=== PATIENT | female | born 1965 | race Caucasian/White ===

== ENCOUNTER 2016-07-02 11:30 | Inpatient (IN) | payer BC ==
[2016-07-02] MEDS ORDERED: PHENERGAN INJ 25 MG IVP PRN (12:18)
[2016-07-02] MEDS ORDERED: ZOFRAN INJ 4 MG VIAL IVP PRN (12:18)
[2016-07-02] MEDS ORDERED: PEPCID 20 MG IV PREMIX* 20 MG/50 ML BAG IV PRN (12:18)
[2016-07-02] MEDS ORDERED: PATIENT'S HOME MEDICATION RESPIRATORY (Alprazolam [Xanax 1 Mg] 1 MG) PO PRN (15:08)
[2016-07-02] MEDS ORDERED: ATARAX TAB 25 MG PO PRN (15:08)
--- NOTE | 2016-07-02 15:15 | DR.H&P ---
H&P - History & Physical for Day of: H&P Date: 07/02/16 - Chief Complaint Chief Complaint: Tom pain, worse after meals, nausea vomiting, diarrhea - Allergies Allergies/Adverse Reactions: Allergies Allergy/AdvReac Type Severity Reaction Status Date / Time No Known Drug Allergy Allergy Verified 04/16/14 17:13 - History of Present Illness History of Present Illness: patient is a 51-year-old white female who was a direct admit from Dr. Palencia's office after failing to improve with outpatient therapy. Patient has been complaining of upper right quadrant pain as well as some right lower quadrant pain. Pain has worsened over last several days with nausea and vomiting and an loose stool. Patient had a gallbladder ultrasound outpatient this a.m. report on chart. Patient was negative for gallstones. 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 Patient had an EGD and a colonoscopy within the last 3 months. Patient does suffer from GERD and is currently on PPI therapy . We plan to admit for CT of abdomen and pelvis to rule out infectious process. We'll plan for a HIDA scan of her gallbladder on Tuesday. 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 - Family History Family Medical History: Diabetes Mellitus, [place], Hypertension - Social History Does patient currently use any type of tobacco product: No Have you used tobacco products in the last 12 months: No Type of Tobacco Use: None Does any household member use tobacco: No Alcohol Use: None - Review of Systems Constitutional: Chills, Weakness Eyes: No Symptoms Reported ENT: No Symptoms Reported Cardiovascular: No Symptoms Reported Gastrointestinal: Nausea, Vomiting, Abdominal Pain, Diarrhea Genitourinary: Frequency Musculoskeletal: Back Pain, Leg Pain Skin: No Symptoms Reported Neurological: Numbness (chronic to lower extremities) - Physical Exam Vital Signs: Blood Pressure [Left Arm] 125/75 Blood Pressure [Right Arm] 135/68 Blood Pressure 125/75 Oriented: Normal Eyes: Normal Ear: Normal Nose: Normal Throat: Normal Respiratory: Clear Throughout Cardiovascular: Normal : Normal Auscultation: Bowel Sounds: Normal Palpation: Normal Tenderness: RUQ, RLQ, Epigastric Skin: Normal Musculoskeletal: Back:Lumbar, Motor Deficit (chronic lower extremity weakness, limited mobility) Psychiatric: Depression Speech Pattern: Clear - Assessment/Plan (1) RUQ abdominal pain Status: Acute Plan: ADMIT, CT ABD PELVIS. CBC CMP AMYLASE, LIPASE. UA/UC. HIDA SCAN ON TUESDAY, GB US ON CHART (2) Nausea & vomiting Qualifiers: Vomiting type: unspecified Vomiting Intractability: V Status: Acute Plan: PAIN AND NAUSEA CONTROL (3) Anxiety Status: Chronic Plan: CONTINUE HOME MEDS (4) Arthritis Status: Chronic Plan: MONITOR, RESUME HOME MEDS (5) Depression Qualifiers: Depression Type: D Major depression recurrence: M Active/Remission status : A Major depression episode severity: M Psychotic features: P Trimester: T Status: Chronic (6) GERD (gastroesophageal reflux disease) Qualifiers: Esophagitis presence: E Status: Chronic Plan: PROTONIX, GI COCKTAIL (7) Lower extremity neuropathy Qualifiers: Laterality: bilateral Qualified Code(s): G57.91 - Unspecified mononeuropathy of right lower limb Status: Chronic Plan: CONTINUE HOME MEDS, MONITOR. FALL RISK
[2016-07-02] MEDS: NS 1000 ML 1,000 ML IV SCH (16:28)
[2016-07-02] MEDS: NEURONTIN CAP 400 MG PO SCH ×3 (16:29→20:55)
[2016-07-02] MEDS ORDERED: [UNRECOGNIZED DRUG - OTHER] PO SCH (17:00)
[2016-07-02] MEDS: COZAAR PO SCH (20:55)
[2016-07-02] MEDS: FLEXERIL TAB 10 MG PO SCH (20:55)
[2016-07-02] MEDS: CIPRO IV 400 MG PREMIX* 400 MG/200 ML IV.SOLN. IV SCH (20:55)
[2016-07-02] MEDS: LEVSIN/MAALOX/LIDOC VISC PO PRN (20:58)
[2016-07-02] MEDS: AMBIEN PO PRN (20:58)
[2016-07-02] MEDS: PERCOCET TAB 5/325 MG PO PRN (21:03)
[2016-07-03 01:36] LABS: BILIRUBIN,URINE NEGATIVE (NEGATIVE); BLOOD/HEMOGLOBIN,URINE NEGATIVE (NEGATIVE); GLUCOSE, URINE NEGATIVE (NEGATIVE); KETONES,URINE NEGATIVE (NEGATIVE); LEUKOCYTE ESTERASE ,URINE NEGATIVE (NEGATIVE); NITRITES,URINE NEGATIVE (NEGATIVE); PH,URINE 6.5 (5.0 - 8.0); PROTEIN,URINE NEGATIVE (NEGATIVE); UROBILINOGEN,URINE NORMAL (NORMAL)
[2016-07-03 01:42] LABS: APPEARANCE,URINE CLEAR (CLEAR); BACTERIA,URINE NEGATIVE /HPF (NEGATIVE); COLOR,URINE YELLOW (YELLOW); RBC,URINE 0-3 /HPF (NEGATIVE); SQUAMOUS EPITHELIAL CELL,UR RARE /HPF (NEGATIVE)
[2016-07-03] MEDS: PERCOCET TAB 5/325 MG PO PRN ×3 (02:53→17:24)
[2016-07-03] MEDS: NS 1000 ML 1,000 ML IV SCH ×3 (04:50→20:31)
[2016-07-03 07:35] LABS: BASOPHILS # (AUTO) 0.1 X10^3/uL (0.0-0.1); BASOPHILS % (AUTO) 0.7 % (0.2-1.0); EOSINOPHILS % (AUTO) 0.5 % (0.9-2.9); HEMATOCRIT 35.7 % (36.0-47.0); HEMOGLOBIN 11.3 g/dL (12.0-16.0); LYMPHOCYTES # (AUTO) 2.6 X10^3/uL (1.3-2.9); LYMPHOCYTES % (AUTO) 34.5 % (21.0-51.0); MEAN CORPUSCULAR HEMOGLOBIN 24.3 pg (27.0-34.0); MEAN CORPUSCULAR HGB CONC 31.6 g/dL (33.0-35.0); MEAN PLATELET VOLUME 7.5 fL (7.4-11.0); MONOCYTES # (AUTO) 0.6 x10^3/uL (0.3-0.8); MONOCYTES % (AUTO) 7.6 % (0.0-13.0); NEUTROPHILS # (AUTO) 4.2 x10^3/uL (2.2-4.8); NEUTROPHILS % (AUTO) 56.7 % (42.0-75.0); PLATELET COUNT 187 X10^3/uL (150.0-450.0); RED BLOOD COUNT 4.63 X10^6/uL (3.5-5.4); RED CELL DISTRIBUTION WIDTH 15.6 % (11.6-16.5); WHITE BLOOD COUNT 7.5 X10^3/uL (3.6-10.0)
[2016-07-03 07:53] LABS: ALANINE AMINOTRANSFERASE 26 Units/L (12-78); ALBUMIN 3.2 g/dL (3.4-5.0); ALKALINE PHOSPHATASE 87 Units/L (46-116); ASPARTATE AMINO TRANSFERASE 12 Units/L (15-37); BLOOD UREA NITROGEN 12 mg/dL (7-18); CALCIUM 8.1 mg/dL (8.5-10.1); CARBON DIOXIDE 33.4 mmol/L (21-32); CHLORIDE 104 mmol/L (98-107); COR CA(FOR HYPOALB) 8.7 mg/dL (8.5-10.1); COR NA(FOR HYPERGLY) 143 mmol/L (136-145); GLUCOSE 121 mg/dL (65-99); SODIUM 142 mmol/L (136-145); TOTAL PROTEIN 6.4 g/dL (6.4-8.2); eGFR BLACK RACES > 60 (>60); eGFR NON BLACK RACES > 60 (>60)
[2016-07-03] MEDS ORDERED: [UNRECOGNIZED DRUG - OTHER] PO SCH (09:00)
[2016-07-03] MEDS: CIPRO IV 400 MG PREMIX* 400 MG/200 ML IV.SOLN. IV SCH ×2 (09:00→20:30)
[2016-07-03 09:01] LABS: MICROCYTOSIS SLIGHT; PLATELET MORPHOLOGY COMMENT NORMAL (NORMAL); STOMATOCYTES PRESENT
[2016-07-03] MEDS ORDERED: BENADRYL INJ 50 MG VIAL IVP ONE (10:15)
[2016-07-03] MEDS: FLEXERIL TAB 10 MG PO SCH ×2 (10:37→20:30)
[2016-07-03] MEDS: NEURONTIN CAP 400 MG PO SCH ×4 (10:37→20:30)
[2016-07-03] MEDS: CELEXA PO SCH (10:37)
[2016-07-03] MEDS ORDERED: NS 100 ML IV 100 ML IV ONE (10:40)
[2016-07-03 11:08] VITALS: BMI 38.3
[2016-07-03] MEDS: XANAX PO PRN (11:09)
--- NOTE | 2016-07-03 15:26 | CT ---
CT OF THE ABDOMEN WITHOUT AND WITH CONTRAST HISTORY: Abdominal pain. History of diverticulitis. Comparison: 04/07/2015 Technique: Multiple axial images of the abdomen were obtained both before and following the administration of I V contrast. Dose reduction techniques including Automated Exposure Control (AEC) and adjustment of mA and kV were utlized. Findings: Abdomen without contrast: No calcified gallstones. No calcified renal stones or proximal ureteral st ones. Abdomen with contrast: The heart is normal in size. There is no pericardial effusion. Lung bases ar e clear without focal consolidation, pleural effusion or pneumothorax. Liver and spleen are normal in size, enhancement characteristics and contour. No focal lesions. The portal vein is patent. No ductal dilitation. Gallbladder is present. No gallbladder wall thickening. The pancreas is unremarkable. Adrenal glands are normal. Kidneys enhance symmetrically without hydr onephrosis. No bowel obstruction or inflammation of the visualized bowel. Normal appendix. No abnormal appearing mesenteric or retroperitoneal lymph nodes. No free fluid or fluid collections. No aggressive osseous lesions. IMPRESSION: 1. No source of patient's abdominal pain is identified. It should be noted that a CT of the abdomen (which was ordered and performed) does not cover a significant portion of the rectosigmoid colon wh ich is a very common site of diverticulitis. 2. It should be noted that dual phase CT (with and without contrast) is neither recommended nor requ ired in most situations and should be reserved for patients with known solid organ lesions, hematuri a and few other specific indications. https://acsearch.acr.org/list Reported By:
[2016-07-03] MEDS: PROTONIX INJ 40 MG VIAL IVP SCH (17:24)
[2016-07-03] MEDS: AMBIEN PO PRN (20:30)
[2016-07-03] MEDS: COZAAR PO SCH (20:30)
[2016-07-04 06:23] LABS: BASOPHILS % (AUTO) 0.6 % (0.2-1.0); EOSINOPHILS # (AUTO) 0.1 x10^3/uL (0.0-0.2); EOSINOPHILS % (AUTO) 0.7 % (0.9-2.9); HEMATOCRIT 34.6 % (36.0-47.0); HEMOGLOBIN 10.9 g/dL (12.0-16.0); LYMPHOCYTES # (AUTO) 2.7 X10^3/uL (1.3-2.9); LYMPHOCYTES % (AUTO) 34.7 % (21.0-51.0); MEAN CORPUSCULAR HEMOGLOBIN 24.3 pg (27.0-34.0); MEAN CORPUSCULAR HGB CONC 31.4 g/dL (33.0-35.0); MEAN CORPUSCULAR VOLUME 77.4 fL (80.0-100.0); MEAN PLATELET VOLUME 7.6 fL (7.4-11.0); MONOCYTES # (AUTO) 0.7 x10^3/uL (0.3-0.8); MONOCYTES % (AUTO) 8.9 % (0.0-13.0); NEUTROPHILS # (AUTO) 4.2 x10^3/uL (2.2-4.8); NEUTROPHILS % (AUTO) 55.1 % (42.0-75.0); PLATELET COUNT 187 X10^3/uL (150.0-450.0); RED BLOOD COUNT 4.48 X10^6/uL (3.5-5.4); RED CELL DISTRIBUTION WIDTH 15.6 % (11.6-16.5); WHITE BLOOD COUNT 7.7 X10^3/uL (3.6-10.0)
[2016-07-04 06:51] LABS: ALANINE AMINOTRANSFERASE 29 Units/L (12-78); ALBUMIN 3.2 g/dL (3.4-5.0); ALKALINE PHOSPHATASE 84 Units/L (46-116); ASPARTATE AMINO TRANSFERASE 17 Units/L (15-37); BLOOD UREA NITROGEN 7 mg/dL (7-18); CALCIUM 8.2 mg/dL (8.5-10.1); CARBON DIOXIDE 31.4 mmol/L (21-32); CHLORIDE 107 mmol/L (98-107); COR CA(FOR HYPOALB) 8.8 mg/dL (8.5-10.1); CREATININE 0.84 mg/dL (0.55-1.02); GLUCOSE 101 mg/dL (65-99); SODIUM 144 mmol/L (136-145); TOTAL PROTEIN 6.3 g/dL (6.4-8.2); eGFR BLACK RACES > 60 (>60); eGFR NON BLACK RACES > 60 (>60)
[2016-07-04 07:26] LABS: HYPOCHROMASIA SLIGHT; PLATELET MORPHOLOGY COMMENT NORMAL (NORMAL)
[2016-07-04] MEDS: XANAX PO PRN ×2 (08:56→20:31)
[2016-07-04] MEDS: FLEXERIL TAB 10 MG PO SCH ×2 (08:56→20:31)
[2016-07-04] MEDS: NEURONTIN CAP 400 MG PO SCH ×4 (08:56→20:30)
[2016-07-04] MEDS: PROTONIX INJ 40 MG VIAL IVP SCH (08:56)
[2016-07-04] MEDS: CIPRO IV 400 MG PREMIX* 400 MG/200 ML IV.SOLN. IV SCH ×2 (08:57→20:28)
[2016-07-04] MEDS: CELEXA PO SCH (08:57)
[2016-07-04] MEDS: PERCOCET TAB 5/325 MG PO PRN ×4 (09:00→23:50)
[2016-07-04] MEDS: LEVSIN/MAALOX/LIDOC VISC PO PRN ×2 (09:04→23:51)
[2016-07-04] MEDS: NS 1000 ML 1,000 ML IV SCH ×2 (13:16→18:10)
[2016-07-04] MEDS: AMBIEN PO PRN (20:31)
[2016-07-04] MEDS: COZAAR PO SCH (20:31)
[2016-07-05] MEDS: NS 1000 ML 1,000 ML IV SCH ×4 (01:55→21:17)
[2016-07-05 05:25] LABS: BASOPHILS % (AUTO) 0.6 % (0.2-1.0); EOSINOPHILS # (AUTO) 0.1 x10^3/uL (0.0-0.2); EOSINOPHILS % (AUTO) 0.9 % (0.9-2.9); HEMATOCRIT 35.3 % (36.0-47.0); HEMOGLOBIN 11.2 g/dL (12.0-16.0); LYMPHOCYTES # (AUTO) 2.9 X10^3/uL (1.3-2.9); LYMPHOCYTES % (AUTO) 37.1 % (21.0-51.0); MEAN CORPUSCULAR HEMOGLOBIN 24.4 pg (27.0-34.0); MEAN CORPUSCULAR HGB CONC 31.7 g/dL (33.0-35.0); MEAN CORPUSCULAR VOLUME 76.9 fL (80.0-100.0); MEAN PLATELET VOLUME 7.6 fL (7.4-11.0); MONOCYTES # (AUTO) 0.5 x10^3/uL (0.3-0.8); MONOCYTES % (AUTO) 6.9 % (0.0-13.0); NEUTROPHILS # (AUTO) 4.3 x10^3/uL (2.2-4.8); NEUTROPHILS % (AUTO) 54.5 % (42.0-75.0); PLATELET COUNT 190 X10^3/uL (150.0-450.0); RED BLOOD COUNT 4.59 X10^6/uL (3.5-5.4); RED CELL DISTRIBUTION WIDTH 15.7 % (11.6-16.5); WHITE BLOOD COUNT 7.9 X10^3/uL (3.6-10.0)
[2016-07-05 05:37] LABS: ALANINE AMINOTRANSFERASE 26 Units/L (12-78); ALBUMIN 3.2 g/dL (3.4-5.0); ALKALINE PHOSPHATASE 77 Units/L (46-116); ASPARTATE AMINO TRANSFERASE 14 Units/L (15-37); BLOOD UREA NITROGEN 5 mg/dL (7-18); CALCIUM 8.1 mg/dL (8.5-10.1); CARBON DIOXIDE 30.7 mmol/L (21-32); CHLORIDE 108 mmol/L (98-107); COR CA(FOR HYPOALB) 8.7 mg/dL (8.5-10.1); CREATININE 0.86 mg/dL (0.55-1.02); GLUCOSE 97 mg/dL (65-99); SODIUM 145 mmol/L (136-145); TOTAL PROTEIN 6.3 g/dL (6.4-8.2); eGFR BLACK RACES > 60 (>60); eGFR NON BLACK RACES > 60 (>60)
[2016-07-05 05:59] LABS: HYPOCHROMASIA SLIGHT; MICROCYTOSIS SLIGHT; PLATELET MORPHOLOGY COMMENT NORMAL (NORMAL)
[2016-07-05] MEDS ORDERED: BENADRYL INJ 50 MG VIAL IVP ONE ×2 (08:00→12:00)
[2016-07-05] MEDS ORDERED: ATIVAN INJ 2 MG VIAL IVP PRN (08:00)
[2016-07-05] MEDS: CIPRO IV 400 MG PREMIX* 400 MG/200 ML IV.SOLN. IV SCH ×2 (08:54→20:55)
[2016-07-05] MEDS: PROTONIX INJ 40 MG VIAL IVP SCH (08:54)
[2016-07-05] MEDS: NEURONTIN CAP 400 MG PO SCH ×4 (11:41→20:55)
--- NOTE | 2016-07-05 13:09 | MRI ---
HISTORY: Low back pain Study: MRI lumbar spine with and without contrast Comparison: None Technique: Multiplanar multi-sequence pre and post contrast MRI of the lumbar spine was obtained. S agittal T1, sagittal T2, and stir weighted images, axial T1, and axial T2 images were obtained. Axia l and sagittal post-contrast T1 weighted images were obtained. Findings: The lumbar spine demonstrates normal alignment with the expected signal characteristics of the bone marrow. No enhancing bone marrow lesions are identified. The conus of the cord terminates normally. No evidence of degenerative disk disease can be identified. T12 -- L1: There is no evidence for compressive disc disease. The neural foramina are patent. The amanda ints are normal. L1 -- L2: No evidence for compressive disc disease. The neural foramina are patent. The joints are n ormal. L2 -- L3: No evidence for compressive disc disease. The neural foramina are patent. The joints are n ormal. L3 -- L4: No evidence for compressive disc disease. The neural foramina are patent. The joints are n ormal. L4 -- L5: there is mild broad-based disc bulging which contributes to mild lateral recess narrowing bilaterally. The neural foramina are otherwise patent. Mild bilateral facet arthropathy is present. L5 -- S1: No evidence for compressive disc disease. The neural foramina are patent. The joints are n ormal. IMPRESSION: As above Reported By:
--- NOTE | 2016-07-05 16:42 | NM ---
HISTORY: Right upper quadrant pain, nausea, food intolerance Study: Nuclear medicine HIDA scan with ejection fraction Comparison: Ultrasound 07/02/2016 Technique: Multiple scintigraphic images of the abdomen were obtained the intravenous administration of 5.5 mCi mCi of technetium labeled Choletec. 8 oz of Ensure plus were given to the patient to drink to calculate gallbladder ejection fraction. Findings: Homogeneous uptake of radiotracer is seen throughout the liver. This intrabiliary ductal system is observed normally. The common hepatic and common bile duct grossly appear unremarkable with normal biliary-bowel transit. The gallbladder is observed to fill normally. Gallbladder ejection fraction is calculated to be 23.6% which is reduced and can be seen with biliar y dyskinesia/functional gallbladder abnormality. IMPRESSION: 1. Decreased gallbladder ejection fraction of 23.6% (normal> 35%) that can be seen with biliary dysk inesia/functional gallbladder abnormality. 2. Otherwise normal hepatobiliary imaging scan. Reported By:
[2016-07-05] MEDS: FLEXERIL TAB 10 MG PO SCH ×2 (16:49→20:55)
[2016-07-05] MEDS: PERCOCET TAB 5/325 MG PO PRN ×2 (17:06→21:22)
[2016-07-05] MEDS: CELEXA PO SCH (17:07)
[2016-07-05] MEDS: LEVSIN/MAALOX/LIDOC VISC PO PRN (19:15)
[2016-07-05] MEDS: COZAAR PO SCH (20:55)
[2016-07-05] MEDS: AMBIEN PO PRN (20:55)
[2016-07-06] MEDS: XANAX PO PRN (00:44)
[2016-07-06] MEDS: PERCOCET TAB 5/325 MG PO PRN (02:48)
[2016-07-06] MEDS: NS 1000 ML 1,000 ML IV SCH (02:49)
[2016-07-06 05:15] LABS: ALANINE AMINOTRANSFERASE 23 Units/L (12-78); ALBUMIN 3.2 g/dL (3.4-5.0); ALKALINE PHOSPHATASE 73 Units/L (46-116); ASPARTATE AMINO TRANSFERASE 12 Units/L (15-37); BLOOD UREA NITROGEN 6 mg/dL (7-18); CALCIUM 8.2 mg/dL (8.5-10.1); CARBON DIOXIDE 28.8 mmol/L (21-32); CHLORIDE 105 mmol/L (98-107); COR CA(FOR HYPOALB) 8.8 mg/dL (8.5-10.1); CREATININE 0.87 mg/dL (0.55-1.02); GLUCOSE 99 mg/dL (65-99); SODIUM 143 mmol/L (136-145); TOTAL PROTEIN 6.2 g/dL (6.4-8.2); eGFR BLACK RACES > 60 (>60); eGFR NON BLACK RACES > 60 (>60)
[2016-07-06 05:31] LABS: BASOPHILS % (AUTO) 0.4 % (0.2-1.0); EOSINOPHILS # (AUTO) 0.1 x10^3/uL (0.0-0.2); EOSINOPHILS % (AUTO) 0.8 % (0.9-2.9); HEMATOCRIT 33.8 % (36.0-47.0); HEMOGLOBIN 10.9 g/dL (12.0-16.0); LYMPHOCYTES # (AUTO) 3.1 X10^3/uL (1.3-2.9); LYMPHOCYTES % (AUTO) 33.4 % (21.0-51.0); MEAN CORPUSCULAR HEMOGLOBIN 24.8 pg (27.0-34.0); MEAN CORPUSCULAR HGB CONC 32.1 g/dL (33.0-35.0); MEAN CORPUSCULAR VOLUME 77.1 fL (80.0-100.0); MEAN PLATELET VOLUME 7.8 fL (7.4-11.0); MONOCYTES # (AUTO) 0.6 x10^3/uL (0.3-0.8); NEUTROPHILS # (AUTO) 5.5 x10^3/uL (2.2-4.8); NEUTROPHILS % (AUTO) 59.4 % (42.0-75.0); PLATELET COUNT 172 X10^3/uL (150.0-450.0); RED BLOOD COUNT 4.38 X10^6/uL (3.5-5.4); RED CELL DISTRIBUTION WIDTH 15.5 % (11.6-16.5); WHITE BLOOD COUNT 9.3 X10^3/uL (3.6-10.0)
[2016-07-06 06:02] LABS: HYPOCHROMASIA SLIGHT; MICROCYTOSIS SLIGHT; PLATELET MORPHOLOGY COMMENT NORMAL (NORMAL)
--- NOTE | 2016-07-06 08:26 | PCM.PROG ---
Progress Note - Progress Note for Day of Date: 07/05/16 - Subjective Subjective: CO NAUSEA, RUQ PAIN. HPI: 50 WF ADMITTED ON TUESDAY WITH CO UPPER ABDOMINAL PAIN AND RUQ PAIN WITH FOOD INTOLERANCE AND NAUSEA FOR SEVERAL WEEKS, WITH SEVERE PAIN OVER LAST 2-3 DAYS PRIOR TO ADMISSION. PT HAD CT ABD PELVIS, AND HIDA SCAN FOR TUESDAY AM. - Past Medical Family Social History Past Med/Fam/Surg Hx: No changes since H&P Allergies: Allergies No Known Drug Allergy Allergy (Verified 04/16/14 17:13) - Review of Systems ROS: No change since H&P - Vital Signs and I&O's Vital Signs: Temperature 97.8 F Pulse Rate [Left Brachial] 69 Pulse Rate [Right Brachial] 70 Respiratory Rate 18 Blood Pressure [Left Arm] 145/65 Blood Pressure [Right Arm] 130/60 Blood Pressure 125/75 O2 Sat by Pulse Oximetry 99 Intake and Output: Intake & Output 07/03/16 07/04/16 07/05/16 07/06/16 11:59 11:59 11:59 11:59 Intake Total 1050 3425 3378 2200 Output Total 200 Balance 850 3425 3378 2200 - Physical Exam Oriented: Normal Eyes: Normal Ear: Normal Nose: Normal Throat: Normal Respiratory: Normal Cardiovascular: Normal : Normal Auscultation: Bowel Sounds: Normal Tenderness: RUQ, RLQ, Epigastric Skin: Normal Musculoskeletal: Back:Lumbar, Motor Deficit (chronic lower extremity weakness, limited mobility) Psychiatric: Depression Speech Pattern: Clear, Appropriate - Laboratory and Diagnostics Result Diagrams: 07/06/16 04:15 07/06/16 04:15 Labs: 07/02/16 22:05 Blood Blood Culture - Preliminary 07/02/16 22:00 Blood Blood Culture - Preliminary 07/03/16 01:10 Urine,Clean Catch Urine Culture - Final Laboratory WBC 9.3 X10^3/uL (3.6-10.0) 07/06/16 04:15 RBC 4.38 X10^6/uL (3.5-5.4) 07/06/16 04:15 Hgb 10.9 g/dL (12.0-16.0) L 07/06/16 04:15 Hct 33.8 % (36.0-47.0) L 07/06/16 04:15 MCV 77.1 fL (80.0-100.0) L 07/06/16 04:15 MCH 24.8 pg (27.0-34.0) L 07/06/16 04:15 MCHC 32.1 g/dL (33.0-35.0) L 07/06/16 04:15 RDW 15.5 % (11.6-16.5) 07/06/16 04:15 Plt Count 172 X10^3/uL (150.0-450.0) 07/06/16 04:15 Plt Count Comment Adequate (ADEQUATE) 07/06/16 04:15 MPV 7.8 fL (7.4-11.0) 07/06/16 04:15 Neut % 59.4 % (42.0-75.0) 07/06/16 04:15 Lymph % 33.4 % (21.0-51.0) 07/06/16 04:15 Mayes % 6.0 % (0.0-13.0) 07/06/16 04:15 Eos % 0.8 % (0.9-2.9) L 07/06/16 04:15 Baso % 0.4 % (0.2-1.0) 07/06/16 04:15 Neut # 5.5 x10^3/uL (2.2-4.8) H 07/06/16 04:15 Lymph # 3.1 X10^3/uL (1.3-2.9) H 07/06/16 04:15 Mayes # 0.6 x10^3/uL (0.3-0.8) 07/06/16 04:15 Eos # 0.1 x10^3/uL (0.0-0.2) 07/06/16 04:15 Baso # 0.0 X10^3/uL (0.0-0.1) 07/06/16 04:15 Absolute Nucleated RBC 0.0 /100WBC 07/06/16 04:15 Plt Morphology Comment Normal (NORMAL) 07/06/16 04:15 RBC Morphology Abnormal (NORMAL) A 07/06/16 04:15 Hypochromasia Slight A 07/06/16 04:15 Microcytosis Slight A 07/06/16 04:15 Stomatocytes Present 07/03/16 07:15 Sodium 143 mmol/L (136-145) 07/06/16 04:15 Corrected Sodium TNP 07/06/16 04:15 Potassium 3.4 mmol/L (3.5-5.1) L 07/06/16 04:15 Chloride 105 mmol/L (98-107) 07/06/16 04:15 Carbon Dioxide 28.8 mmol/L (21-32) 07/06/16 04:15 BUN 6 mg/dL (7-18) L 07/06/16 04:15 Creatinine 0.87 mg/dL (0.55-1.02) 07/06/16 04:15 Est GFR (MDRD) Af Amer > 60 (>60) 07/06/16 04:15 Est GFR (MDRD) Non-Af > 60 (>60) 07/06/16 04:15 Glucose 99 mg/dL (65-99) 07/06/16 04:15 Calcium 8.2 mg/dL (8.5-10.1) L 07/06/16 04:15 Corrected Calcium 8.8 mg/dL (8.5-10.1) 07/06/16 04:15 Total Bilirubin 0.30 mg/dL (0.2-1.0) 07/06/16 04:15 AST 12 Units/L (15-37) L 07/06/16 04:15 ALT 23 Units/L (12-78) 07/06/16 04:15 Alkaline Phosphatase 73 Units/L (46-116) 07/06/16 04:15 Total Protein 6.2 g/dL (6.4-8.2) L 07/06/16 04:15 Albumin 3.2 g/dL (3.4-5.0) L 07/06/16 04:15 Globulin 3.0 g/dL (2.5-4.5) 07/06/16 04:15 Albumin/Globulin Ratio 1.1 Ratio (1.1-2.1) 07/06/16 04:15 Specimen Type Clean catch urine 07/03/16 01:10 Urine Color Yellow (YELLOW) 07/03/16 01:10 Urine Appearance Clear (CLEAR) 07/03/16 01:10 Urine pH 6.5 (5.0 - 8.0) 07/03/16 01:10 Ur Specific Addy 1.010 (1.000-1.030) 07/03/16 01:10 Urine Protein Negative (NEGATIVE) 07/03/16 01:10 Urine Glucose (UA) Negative (NEGATIVE) 07/03/16 01:10 Urine Ketones Negative (NEGATIVE) 07/03/16 01:10 Urine Occult Blood Negative (NEGATIVE) 07/03/16 01:10 Urine Nitrite Negative (NEGATIVE) 07/03/16 01:10 Urine Bilirubin Negative (NEGATIVE) 07/03/16 01:10 Urine Urobilinogen Normal (NORMAL) 07/03/16 01:10 Ur Leukocyte Esterase Negative (NEGATIVE) 07/03/16 01:10 Urine RBC 0-3 /HPF (NEGATIVE) 07/03/16 01:10 Urine WBC 0-3 /HPF (NEGATIVE) 07/03/16 01:10 Ur Squamous Epith Cells Rare /HPF (NEGATIVE) 07/03/16 01:10 Urine Bacteria Negative /HPF (NEGATIVE) 07/03/16 01:10 Ur Culture Indicated? Yes/culture set up 07/03/16 01:10 Stool Description 180g,formed,soft,simpson 07/03/16 09:00 Stl Occult Blood (IFOB) Negative (NEGATIVE) 07/03/16 09:00 - Plan (1) RUQ abdominal pain Status: Acute Plan: CT ABD PELVIS STALBE. CBC CMP AMYLASE, LIPASE STABLE. UA/UC. HIDA SCAN ON TUESDAY, GB US ON CHART. CONTINUE PAIN AND NAUSA CONTROL (2) Nausea & vomiting Status: Acute Qualifiers: Vomiting type: unspecified Vomiting Intractability: V Plan: PAIN AND NAUSEA CONTROL (3) Anxiety Status: Chronic Plan: CONTINUE HOME MEDS (4) Arthritis Status: Chronic Plan: MONITOR, RESUME HOME MEDS (5) Depression Status: Chronic Qualifiers: Depression Type: D Major depression recurrence: M Active/Remission status : A Major depression episode severity: M Psychotic features: P Trimester: T (6) GERD (gastroesophageal reflux disease) Status: Chronic Qualifiers: Esophagitis presence: E Plan: PROTONIX, GI COCKTAIL (7) Lower extremity neuropathy Status: Chronic Qualifiers: Laterality: bilateral Qualified Code(s): G57.91 - Unspecified mononeuropathy of right lower limb Plan: CONTINUE HOME MEDS, MONITOR. FALL RISK
[2016-07-06] MEDS: PROTONIX INJ 40 MG VIAL IVP SCH (09:09)
[2016-07-06] MEDS: CIPRO IV 400 MG PREMIX* 400 MG/200 ML IV.SOLN. IV SCH (09:10)
[2016-07-06] MEDS: NEURONTIN CAP 400 MG PO SCH ×2 (09:11→13:04)
[2016-07-06] MEDS: CELEXA PO SCH (09:11)
[2016-07-06] MEDS: FLEXERIL TAB 10 MG PO SCH (09:11)
[2016-07-06 13:55] VITALS: BP 115/56
[2016-07-06] MEDS ORDERED: MORPHINE SULFATE INJ 2 MG IVP ONE (14:03)
[2016-07-06] MEDS ORDERED: MORPHINE SULFATE INJ 2 MG ONE (14:04)
== END 2016-07-06 14:19 | disposition short-term general hospital (02) | DRG 392 ==
LOC: OBS 11:30 → MED/SURG 16:42
PROVIDERS: ADMIT Internal Medicine; ATTEND Internal Medicine
DX: R10.11 Right upper quadrant pain (principal); R10.31 Right lower quadrant pain; R10.13 Epigastric pain; R11.2 Nausea with vomiting, unspecified; R19.7 Diarrhea, unspecified; I10 Essential (primary) hypertension; K21.9 Gastro-esophageal reflux disease without esophagitis; F41.8 Other specified anxiety disorders; M13.89 Other specified arthritis, multiple sites; F32.89 Other specified depressive episodes; G57.91 Unspecified mononeuropathy of right lower limb; M54.2 Cervicalgia
CPT/HCPCS: 36415; 72149; 74170; 78227; 80053; 81001; 82270; 85025; 87040; 87086; 93005; 93010; A4222; C9113; S0028; J0744; J1200; J2060; J2270; J2405

== ENCOUNTER → 2016-07-02 | Outpatient (CLI) | payer BC ==
[2015-04-09 12:21] VITALS: BP 125/75
--- NOTE | 2016-07-02 10:25 | US ---
HISTORY: 51-year-old female with right upper quadrant pain and reflux. Study: Right upper quadrant abdominal ultrasound Comparison: CT of the abdomen and pelvis April 16, 2014. Technique: Multiple trammell scale and color flow Doppler images of the right upper quadrant were obtain ed. Findings: The liver is normal in size with mild diffuse increased parenchymal echogenicity. No focal intrapar enchymal mass or intrahepatic biliary ductal dilatation can be observed. The gallbladder fails to d emonstrate evidence for cholelithiasis or layering sludge. The common bile duct is unremarkable rachna suring 5 mm. No pericholecystic fluid or gallbladder wall thickening can be observed. The right kidney appears normal in size without focal parenchymal mass or nephrolithiasis. The righ t kidney measurers 8.4 cm. No hydronephrosis or perirenal fluid can be observed. The pancreatic he ad and body are unremarkable. The pancreatic tail is largely obscured by overlying bowel gas. IMPRESSION: 1. No cholelithiasis or evidence of cholecystitis. 2. Hepatic steatosis. Reported By:
== END ==
LOC: RAD 09:29
PROVIDERS: ATTEND Nurse Practitioner Family
DX: R10.11 Right upper quadrant pain (principal); K21.9 Gastro-esophageal reflux disease without esophagitis
CPT/HCPCS: 76705

== ENCOUNTER 2019-05-08 12:15 | Observation (INO) ==
[2019-05-08] MEDS ORDERED: NS 1000 ML 1,000 ML ONE (13:38)
[2019-05-08] MEDS: NS 1000 ML 1,000 ML IV SCH (14:07)
[2019-05-08] MEDS: CIPRO IV 400 MG PREMIX* 400 MG/200 ML IV.SOLN. IV SCH ×2 (14:08→21:00)
[2019-05-08 14:20] LABS: BILIRUBIN,URINE NEGATIVE (NEGATIVE); BLOOD/HEMOGLOBIN,URINE NEGATIVE (NEGATIVE); GLUCOSE, URINE NEGATIVE (NEGATIVE); KETONES,URINE NEGATIVE (NEGATIVE); LEUKOCYTE ESTERASE ,URINE NEGATIVE (NEGATIVE); NITRITES,URINE NEGATIVE (NEGATIVE); PROTEIN,URINE NEGATIVE (NEGATIVE); UROBILINOGEN,URINE NORMAL (NORMAL)
[2019-05-08 14:22] LABS: APPEARANCE,URINE CLEAR (CLEAR); COLOR,URINE PALE YELLOW (YELLOW)
[2019-05-08 14:25] VITALS: BMI 35.2
[2019-05-08 14:30] LABS: BASOPHILS # (AUTO) 0.1 X10^3/uL (0.0-0.1); BASOPHILS % (AUTO) 0.8 % (0.2-1.0); EOSINOPHILS % (AUTO) 0.4 % (0.9-2.9); HEMATOCRIT 33.6 % (36.0-47.0); HEMOGLOBIN 10.8 g/dL (12.0-16.0); LYMPHOCYTES # (AUTO) 2.1 X10^3/uL (1.3-2.9); LYMPHOCYTES % (AUTO) 22.8 % (21.0-51.0); MEAN CORPUSCULAR HGB CONC 32.1 g/dL (33.0-35.0); MONOCYTES # (AUTO) 0.4 x10^3/uL (0.3-0.8); MONOCYTES % (AUTO) 4.3 % (0.0-13.0); NEUTROPHILS # (AUTO) 6.8 x10^3/uL (2.2-4.8); NEUTROPHILS % (AUTO) 71.7 % (42.0-75.0); PLATELET COUNT 185 X10^3/uL (150.0-450.0); RED BLOOD COUNT 4.31 X10^6/uL (3.5-5.4); RED CELL DISTRIBUTION WIDTH 15.6 % (11.6-16.5); WHITE BLOOD COUNT 9.4 X10^3/uL (3.6-10.0)
[2019-05-08 14:43] LABS: HYPOCHROMASIA SLIGHT; PLATELET MORPHOLOGY COMMENT NORMAL (NORMAL)
[2019-05-08 14:49] LABS: ALANINE AMINOTRANSFERASE 18 Units/L (12-78); ALBUMIN 3.4 g/dL (3.4-5.0); ALKALINE PHOSPHATASE 92 Units/L (46-116); ASPARTATE AMINO TRANSFERASE 10 Units/L (15-37); BLOOD UREA NITROGEN 9 mg/dL (7-18); CALCIUM 8.3 mg/dL (8.5-10.1); CARBON DIOXIDE 32.4 mmol/L (21-32); CHLORIDE 103 mmol/L (98-107); CKMB % 0.5 % (<4); COR NA(FOR HYPERGLY) 142 mmol/L (136-145); CREATINE KINASE 212 Units/L (26-192); CREATINE KINASE MB < 1.0 ng/mL (0-4.0); CREATININE 0.92 mg/dL (0.55-1.02); SODIUM 141 mmol/L (136-145); TOTAL PROTEIN 6.5 g/dL (6.4-8.2); TROPONIN I < 0.02 ng/mL (0-1.5); eGFR NON BLACK RACES > 60 (>60)
--- NOTE | 2019-05-08 14:49 | RAD ---
HISTORYChest pain and shortness of breathSTUDYUpright portable AP chestCOMPARISONNoneFINDINGSThe lungs are clear and the heart and mediastinum are unremarkable. There is no edema or effusion.IMPRESSIONNo evidence for active cardiopulmonary diseaseElectronically signed by: YOLY MADRIGAL (May 08, 2019 14:48:03)
[2019-05-08] MEDS ORDERED: K-RIDER 10 MEQ/NS 100 ML 10 MEQ/100 ML BAG IV PRN (17:38)
[2019-05-08] MEDS ORDERED: MICRO K EXTEN CAP 10 MEQ PO PRN (17:38)
[2019-05-08] MEDS ORDERED: POTASSIUM CHL 40 MEQ/NS 0.45% 500 ML IV PRN (17:38)
[2019-05-08] MEDS ORDERED: POTASSIUM CHL 60 MEQ/NS 0.45% 500 ML IV PRN (17:38)
[2019-05-08] MEDS ORDERED: POTASSIUM CHLORIDE LIQ 20 MEQ UDC PO PRN (17:38)
[2019-05-08] MEDS ORDERED: K-DUR TAB 20 MEQ PO PRN (17:38)
[2019-05-08] MEDS: MAGNESIUM SULFATE 1 GRAM/100 mL PREMIX 1 GM/100 ML BAG IV PRN ×2 (18:00→20:48)
[2019-05-08] MEDS: KLOR-CON PO PRN ×2 (18:05→21:07)
[2019-05-08 19:58] LABS: CKMB % 0.5 % (<4); CREATINE KINASE 206 Units/L (26-192); CREATINE KINASE MB < 1.0 ng/mL (0-4.0); TROPONIN I < 0.02 ng/mL (0-1.5)
[2019-05-08] MEDS: NORCO 5/325 MG TAB PO PRN (20:45)
[2019-05-09 02:06] LABS: CKMB % 0.5 % (<4); CREATINE KINASE 214 Units/L (26-192); CREATINE KINASE MB < 1.0 ng/mL (0-4.0); TROPONIN I < 0.02 ng/mL (0-1.5)
[2019-05-09] MEDS: NS 1000 ML 1,000 ML IV SCH ×3 (02:30→16:37)
[2019-05-09] MEDS: NORCO 5/325 MG TAB PO PRN ×3 (03:03→21:10)
[2019-05-09 06:52] LABS: BASOPHILS # (AUTO) 0.1 X10^3/uL (0.0-0.1); BASOPHILS % (AUTO) 0.8 % (0.2-1.0); EOSINOPHILS # (AUTO) 0.1 x10^3/uL (0.0-0.2); EOSINOPHILS % (AUTO) 0.9 % (0.9-2.9); HEMATOCRIT 31.4 % (36.0-47.0); HEMOGLOBIN 10.2 g/dL (12.0-16.0); LYMPHOCYTES # (AUTO) 2.1 X10^3/uL (1.3-2.9); LYMPHOCYTES % (AUTO) 34.2 % (21.0-51.0); MEAN CORPUSCULAR HEMOGLOBIN 25.3 pg (27.0-34.0); MEAN CORPUSCULAR HGB CONC 32.7 g/dL (33.0-35.0); MEAN CORPUSCULAR VOLUME 77.4 fL (80.0-100.0); MONOCYTES # (AUTO) 0.5 x10^3/uL (0.3-0.8); MONOCYTES % (AUTO) 8.4 % (0.0-13.0); NEUTROPHILS # (AUTO) 3.5 x10^3/uL (2.2-4.8); NEUTROPHILS % (AUTO) 55.7 % (42.0-75.0); PLATELET COUNT 184 X10^3/uL (150.0-450.0); RED BLOOD COUNT 4.05 X10^6/uL (3.5-5.4); RED CELL DISTRIBUTION WIDTH 15.8 % (11.6-16.5); WHITE BLOOD COUNT 6.2 X10^3/uL (3.6-10.0)
[2019-05-09 07:29] LABS: ALANINE AMINOTRANSFERASE 18 Units/L (12-78); ALBUMIN 3.2 g/dL (3.4-5.0); ALKALINE PHOSPHATASE 88 Units/L (46-116); ASPARTATE AMINO TRANSFERASE 12 Units/L (15-37); BLOOD UREA NITROGEN 8 mg/dL (7-18); CALCIUM 8.3 mg/dL (8.5-10.1); CARBON DIOXIDE 32.3 mmol/L (21-32); CHLORIDE 105 mmol/L (98-107); COR CA(FOR HYPOALB) 8.9 mg/dL (8.5-10.1); CREATININE 0.76 mg/dL (0.55-1.02); MAGNESIUM 2.1 mg/dL (1.7-2.9); SODIUM 141 mmol/L (136-145); TOTAL PROTEIN 6.4 g/dL (6.4-8.2); eGFR NON BLACK RACES > 60 (>60)
[2019-05-09 07:33] LABS: PLATELET MORPHOLOGY COMMENT NORMAL (NORMAL)
[2019-05-09] MEDS: CIPRO IV 400 MG PREMIX* 400 MG/200 ML IV.SOLN. IV SCH ×2 (08:18→21:08)
[2019-05-09] MEDS: HEMOCYTE-PLUS PO SCH (11:30)
[2019-05-09 12:19] LABS: CKMB % 0.5 % (<4); CREATINE KINASE 223 Units/L (26-192); CREATINE KINASE MB < 1.0 ng/mL (0-4.0); TROPONIN I < 0.02 ng/mL (0-1.5)
[2019-05-09 16:31] LABS: CKMB % 0.4 % (<4); CREATINE KINASE 236 Units/L (26-192); CREATINE KINASE MB < 1.0 ng/mL (0-4.0); TROPONIN I < 0.02 ng/mL (0-1.5)
[2019-05-09] MEDS ORDERED: AMBIEN PO PRN (17:26)
[2019-05-09] MEDS ORDERED: ATARAX TAB 25 MG PO PRN (17:26)
[2019-05-09] MEDS ORDERED: FLEXERIL TAB 10 MG PO PRN (17:26)
[2019-05-09] MEDS ORDERED: PHENERGAN TAB 25 MG PO PRN (17:26)
[2019-05-09] MEDS ORDERED: XANAX PO PRN (17:26)
[2019-05-09] MEDS ORDERED: MOTRIN TAB 800 MG PO PRN (17:45)
[2019-05-09] MEDS: CELEBREX PO SCH (18:22)
[2019-05-09] MEDS: NexIUM PO SCH (18:23)
[2019-05-09] MEDS: COZAAR PO SCH (18:23)
[2019-05-09] MEDS: CELEXA PO SCH (18:23)
[2019-05-09 19:37] LABS: CREATINE KINASE 239 Units/L (26-192); TROPONIN I < 0.02 ng/mL (0-1.5)
[2019-05-09] MEDS ORDERED: LIPITOR TAB 10 MG PO SCH (21:00)
[2019-05-09] MEDS ORDERED: PEPCID TAB 20 MG PO SCH (21:00)
[2019-05-09] MEDS ORDERED: ELAVIL PO SCH (21:00)
[2019-05-09] MEDS: NEURONTIN CAP 400 MG PO SCH (21:07)
[2019-05-09 21:13] LABS: CKMB % 0.4 % (<4); CREATINE KINASE MB < 1.0 ng/mL (0-4.0)
[2019-05-10] MEDS: NS 1000 ML 1,000 ML IV SCH (04:23)
[2019-05-10 06:53] LABS: BASOPHILS % (AUTO) 0.9 % (0.2-1.0); EOSINOPHILS # (AUTO) 0.1 x10^3/uL (0.0-0.2); EOSINOPHILS % (AUTO) 1.1 % (0.9-2.9); HEMATOCRIT 33.3 % (36.0-47.0); HEMOGLOBIN 10.8 g/dL (12.0-16.0); LYMPHOCYTES # (AUTO) 2.1 X10^3/uL (1.3-2.9); LYMPHOCYTES % (AUTO) 40.9 % (21.0-51.0); MEAN CORPUSCULAR HEMOGLOBIN 25.3 pg (27.0-34.0); MEAN CORPUSCULAR HGB CONC 32.4 g/dL (33.0-35.0); MEAN CORPUSCULAR VOLUME 78.1 fL (80.0-100.0); MEAN PLATELET VOLUME 7.2 fL (7.4-11.0); MONOCYTES # (AUTO) 0.5 x10^3/uL (0.3-0.8); MONOCYTES % (AUTO) 8.7 % (0.0-13.0); NEUTROPHILS # (AUTO) 2.5 x10^3/uL (2.2-4.8); NEUTROPHILS % (AUTO) 48.4 % (42.0-75.0); PLATELET COUNT 189 X10^3/uL (150.0-450.0); RED BLOOD COUNT 4.27 X10^6/uL (3.5-5.4); RED CELL DISTRIBUTION WIDTH 15.7 % (11.6-16.5); WHITE BLOOD COUNT 5.2 X10^3/uL (3.6-10.0)
[2019-05-10 07:19] LABS: ALANINE AMINOTRANSFERASE 18 Units/L (12-78); ALBUMIN 3.3 g/dL (3.4-5.0); ALKALINE PHOSPHATASE 86 Units/L (46-116); ASPARTATE AMINO TRANSFERASE 10 Units/L (15-37); BLOOD UREA NITROGEN 7 mg/dL (7-18); CALCIUM 8.9 mg/dL (8.5-10.1); CARBON DIOXIDE 31.7 mmol/L (21-32); CHLORIDE 104 mmol/L (98-107); COR CA(FOR HYPOALB) 9.5 mg/dL (8.5-10.1); CREATININE 0.78 mg/dL (0.55-1.02); SODIUM 142 mmol/L (136-145); TOTAL PROTEIN 6.5 g/dL (6.4-8.2); eGFR NON BLACK RACES > 60 (>60)
[2019-05-10 07:32] LABS: PLATELET MORPHOLOGY COMMENT NORMAL (NORMAL)
[2019-05-10] MEDS ORDERED: VITAMIN D3 PO SCH (09:00)
[2019-05-10] MEDS: CELEBREX PO SCH (09:15)
[2019-05-10] MEDS: HEMOCYTE-PLUS PO SCH (09:17)
[2019-05-10] MEDS: NEURONTIN CAP 400 MG PO SCH (09:17)
[2019-05-10] MEDS: NexIUM PO SCH (09:17)
[2019-05-10] MEDS: CIPRO IV 400 MG PREMIX* 400 MG/200 ML IV.SOLN. IV SCH (09:18)
[2019-05-10] MEDS: COZAAR PO SCH (09:18)
[2019-05-10] MEDS: CELEXA PO SCH (09:18)
[2019-05-10] MEDS ORDERED: PATIENT'S HOME MEDICATION PO SCH (10:00)
[2019-05-10] MEDS ORDERED: ARTIFICIAL TEARS DROPS AFFEYE PRN (10:23)
[2019-05-10 11:56] VITALS: BP 114/62
--- NOTE | 2019-05-10 11:56 | DR.UPDATE ---
H&P Update History and Physical Update: History and Physical reviewed and patient examined. Changes noted: Yes with the following: WAS SEEN IN THE OFFICE YESTERDAY FOR COMPLAINTS OF CHEST PAIN, DIZZINESS, A SYNCOPAL EPISODE AT HOME, AND A URINARY TRACT INFECTION. SHE WAS ADMITTED FOR FURTHER EVALUATION AND TREATMENT. ON ADMISSION, VITALS WERE 98.0-108-20-96%-153/78. LABS WERE OBTAINED. ABNORMAL LAB VALUES INCLUDE THE FOLLOWING: HGB 10.8, HCT 33.6, POTASSIUM 3.1, CARBON DIOXIDE 32.4, GLUCOSE 157, CALCIUM 8.3, AST 10, CREATINE KINASE 212. CARDIAC ENZYMES ARE OTHERWISE UNREMARKABLE. URINE CULTURE SET UP. A CHEST XRAY WAS OBTAINED AND REVEALED: NO EVIDENCE FOR ACTIVE CARDIOPULMONARY DISEASE. EKG REVEALED: SINUS RHYTHM WITH HR 95. SHE WAS STARTED ON NORMAL SALINE AT 80 ML/HR, CIPRO 400MG IV Q12H, THE POTASSIUM AND MAGNESIUM PROTOCOLS, AND HOME MEDICATIONS WERE RESUMED. TODAY, WE WILL START HEMOCYTE PLUS ONE TABLET PO DAILY AND REPEAT SERIAL CARDIAC ENZYMES AND EKGS. OTHERWISE, WE WILL FOLLOW UP WITH AM LABS AND CONTINUE TO MONITOR. Prescription drug monitoring program results: PDMP reviewed and no concerns identified H&P Reviewed: Yes Patient was examined?: Yes
== END 2019-05-10 13:05 | disposition home or self-care (01) ==
LOC: MED/SURG
PROVIDERS: ADMIT Internal Medicine; ATTEND Internal Medicine
DX: R94.31 Abnormal electrocardiogram [ECG] [EKG]; R19.7 Diarrhea, unspecified; Z79.899 Other long term (current) drug therapy; E78.49 Other hyperlipidemia; R13.11 Dysphagia, oral phase; R55 Syncope and collapse; K21.9 Gastro-esophageal reflux disease without esophagitis; N39.0 Urinary tract infection, site not specified; R26.89 Other abnormalities of gait and mobility; I10 Essential (primary) hypertension; I20.9 Angina pectoris, unspecified; R42 Dizziness and giddiness; R06.02 Shortness of breath
CPT/HCPCS: 36415; 71010; 71045; 80053; 81003; 82550; 82553; 83735; 84132; 84484; 85025; 87086; 92526; 92610; 93005; 94760; 96360; 96361; 97161; A4216; A4222; G0378; J0744; J3475; J7030; Q0169

== ENCOUNTER 2020-03-25 13:12 | Observation (INO) ==
[2020-03-25 17:58] LABS: BASOPHILS # (AUTO) 0.1 X10^3/uL (0.0-0.1); BASOPHILS % (AUTO) 0.9 % (0.2-1.0); EOSINOPHILS # (AUTO) 0.1 x10^3/uL (0.0-0.2); EOSINOPHILS % (AUTO) 1.2 % (0.9-2.9); HEMATOCRIT 39.7 % (36.0-47.0); HEMOGLOBIN 12.9 g/dL (12.0-16.0); LYMPHOCYTES # (AUTO) 2.9 X10^3/uL (1.3-2.9); LYMPHOCYTES % (AUTO) 40.7 % (21.0-51.0); MEAN CORPUSCULAR HEMOGLOBIN 26.7 pg (27.0-34.0); MEAN CORPUSCULAR HGB CONC 32.5 g/dL (33.0-35.0); MEAN CORPUSCULAR VOLUME 82.1 fL (80.0-100.0); MONOCYTES # (AUTO) 0.4 x10^3/uL (0.3-0.8); MONOCYTES % (AUTO) 5.9 % (0.0-13.0); NEUTROPHILS # (AUTO) 3.7 x10^3/uL (2.2-4.8); NEUTROPHILS % (AUTO) 51.3 % (42.0-75.0); PLATELET COUNT 218 X10^3/uL (150.0-450.0); RED BLOOD COUNT 4.83 X10^6/uL (3.5-5.4); RED CELL DISTRIBUTION WIDTH 14.4 % (11.6-16.5); WHITE BLOOD COUNT 7.2 X10^3/uL (3.6-10.0)
[2020-03-25 18:10] LABS: ALANINE AMINOTRANSFERASE 25 Units/L (12-78); ALKALINE PHOSPHATASE 87 Units/L (46-116); ASPARTATE AMINO TRANSFERASE 20 Units/L (15-37); BLOOD UREA NITROGEN 9 mg/dL (7-18); CALCIUM 9.4 mg/dL (8.5-10.1); CARBON DIOXIDE 32.8 mmol/L (21-32); CHLORIDE 102 mmol/L (98-107); CREATININE 0.94 mg/dL (0.55-1.02); SODIUM 142 mmol/L (136-145); TOTAL PROTEIN 7.2 g/dL (6.4-8.2); eGFR NON BLACK RACES > 60 (>60)
[2020-03-25] MEDS: PROTONIX INJ 40 MG VIAL IVP SCH ×2 (18:30→20:51)
[2020-03-25] MEDS: NS 1000 ML 1,000 ML IV SCH (18:30)
[2020-03-25] MEDS: ZOFRAN INJ 4 MG VIAL IVP PRN (18:31)
[2020-03-25] MEDS: PEPCID 20 MG IV PREMIX* 20 MG/50 ML BAG IV SCH ×2 (18:31→20:52)
[2020-03-25 18:48] LABS: BILIRUBIN,URINE NEGATIVE (NEGATIVE); BLOOD/HEMOGLOBIN,URINE 1+ (NEGATIVE); GLUCOSE, URINE NEGATIVE (NEGATIVE); KETONES,URINE NEGATIVE (NEGATIVE); LEUKOCYTE ESTERASE ,URINE 2+ (NEGATIVE); NITRITES,URINE NEGATIVE (NEGATIVE); PROTEIN,URINE NEGATIVE (NEGATIVE); UROBILINOGEN,URINE NORMAL (NORMAL)
[2020-03-25 18:53] LABS: APPEARANCE,URINE CLEAR (CLEAR); BACTERIA,URINE TRACE /HPF (NEGATIVE); COLOR,URINE YELLOW (YELLOW); RBC,URINE 0-2 /HPF (0-3); SQUAMOUS EPITHELIAL CELL,UR FEW /HPF (NEGATIVE)
[2020-03-25] MEDS: ROCEPHIN VIAL 1 GRAM 1 G in NS 100 ML IV + SPIKE MINIBAG* 100 ML IV SCH (20:44)
[2020-03-25] MEDS: AMBIEN PO PRN (22:44)
[2020-03-25] MEDS: NORCO 10/325 TAB PO PRN (22:45)
[2020-03-26] MEDS: NS 1000 ML 1,000 ML IV SCH ×4 (04:09→19:57)
[2020-03-26] MEDS: MILK OF MAGNESIA PO PRN ×2 (05:40→17:47)
[2020-03-26] MEDS: COLACE CAP 100 MG PO PRN ×2 (05:40→21:18)
[2020-03-26] MEDS: TORADOL 30 MG VIAL IVP PRN ×2 (05:41→14:50)
[2020-03-26 06:25] VITALS: BMI 25.8
[2020-03-26 06:32] LABS: BASOPHILS % (AUTO) 0.4 % (0.2-1.0); EOSINOPHILS # (AUTO) 0.1 x10^3/uL (0.0-0.2); EOSINOPHILS % (AUTO) 1.4 % (0.9-2.9); HEMATOCRIT 34.8 % (36.0-47.0); HEMOGLOBIN 11.1 g/dL (12.0-16.0); LYMPHOCYTES # (AUTO) 2.8 X10^3/uL (1.3-2.9); LYMPHOCYTES % (AUTO) 39.9 % (21.0-51.0); MEAN CORPUSCULAR HEMOGLOBIN 26.7 pg (27.0-34.0); MEAN CORPUSCULAR HGB CONC 31.9 g/dL (33.0-35.0); MEAN CORPUSCULAR VOLUME 83.7 fL (80.0-100.0); MEAN PLATELET VOLUME 7.3 fL (7.4-11.0); MONOCYTES # (AUTO) 0.6 x10^3/uL (0.3-0.8); NEUTROPHILS # (AUTO) 3.5 x10^3/uL (2.2-4.8); NEUTROPHILS % (AUTO) 50.3 % (42.0-75.0); PLATELET COUNT 183 X10^3/uL (150.0-450.0); RED BLOOD COUNT 4.16 X10^6/uL (3.5-5.4); RED CELL DISTRIBUTION WIDTH 14.6 % (11.6-16.5); WHITE BLOOD COUNT 6.9 X10^3/uL (3.6-10.0)
--- NOTE | 2020-03-26 06:37 | CT ---
HISTORYABD PAIN, CHRONIC UTISTUDYABDOMEN/PELVIS W/O [id number] axial images of the abdomen and pelvis were obtained from the lung bases to the pubic symphysis without the administration of IV contrast. Dose reduction techniques including Automated Exposure Control (AEC) and adjustment of mA and kV were utilized.FINDINGSThe visualized portions of the lung bases are unremarkable . The liver, spleen, pancreas, kidneys, and adrenal glands are unremarkable in their CT appearance. Post cholecystectomy changes.. No significant mesenteric lymphadenopathy or stranding can be observed. No free fluid or free air is seen within the abdomen. Normal appendix right lower quadrant. No bowel wall thickening or bowel dilatation is present. The colon is unremarkable. Specifically, there is no diverticulosis noted within the sigmoid colon. The urinary bladder is grossly unremarkable. The uterus has been removed. The bony structures are grossly intact. Tiny fat containing umbilical hernia.IMPRESSIONUnremarkable CT of the abdomen and pelvis.Electronically signed by: Leopoldo Perdue (Mar 26, 2020 06:34:56)
[2020-03-26 06:48] LABS: ALANINE AMINOTRANSFERASE 22 Units/L (12-78); ALBUMIN 3.2 g/dL (3.4-5.0); ALKALINE PHOSPHATASE 81 Units/L (46-116); ASPARTATE AMINO TRANSFERASE 16 Units/L (15-37); BLOOD UREA NITROGEN 8 mg/dL (7-18); CALCIUM 8.4 mg/dL (8.5-10.1); CARBON DIOXIDE 32.7 mmol/L (21-32); CHLORIDE 106 mmol/L (98-107); COR NA(FOR HYPERGLY) 143 mmol/L (136-145); CREATININE 0.86 mg/dL (0.55-1.02); SODIUM 142 mmol/L (136-145); TOTAL PROTEIN 5.9 g/dL (6.4-8.2); eGFR NON BLACK RACES > 60 (>60)
[2020-03-26] MEDS: PEPCID 20 MG IV PREMIX* 20 MG/50 ML BAG IV SCH ×2 (09:00→19:59)
[2020-03-26] MEDS: PROTONIX INJ 40 MG VIAL IVP SCH ×2 (09:01→20:00)
[2020-03-26] MEDS: ZOFRAN INJ 4 MG VIAL IVP PRN ×2 (09:02→14:50)
--- NOTE | 2020-03-26 09:05 | DR.UPDATE ---
H&P Update History and Physical Update: History and Physical reviewed and patient examined. Changes noted: Yes with the following: WAS A DIRECT ADMISSION DUE TO COMPLAINT OF ABDOMINAL PAIN AND RECURRENT URINARY TRACT INFECTIONS. SHE HAS TAKEN BACTRIM, MACROBID, CIPRO, DOXYCYCLINE, AND IS NOW ON LEVAQUIN. SHE REPORTS PROGRESSIVELY WORSENING OF SYMPTOMS DESPITE COMPLIANCE WITH MEDICATIONS. SHE WAS ADMITTED TO THE HOSPITAL FOR FURTHER EVALUATION AND TREATMENT. ON ARRIVAL TO THE HOSPITAL, VITALS WERE 98.1-83-20-98%-150/79. LABS WERE OBTAINED. SHE IS HEMODYNAMICALLY STABLE. URINALYSIS WAS OBTAINED AND REVEALED WBC 3-5, RBC 0-2, LEUKOCYTES 2+, BACTERIA TRACE, OCCULT BLOOD 1+. URINALYSIS OBTAINED AT THE OFFICE ON 03/21 REVEALED POSITIVE NITRITES. A URINE CULTURE WAS SET UP. WE ORDERED AN ABDOMEN/PELVIS CT WITHOUT CONTRAST. SHE WAS STARTED ON NORMAL SALINE AT 80 ML/HR, ROCEPHIN 1G IV DAILY, PEPCID 20MG IV Q12H, PROTONIX 40MG IV BID, ZOFRAN 4MG IV Q4H PRN, AND TORADOL 30MG IV Q6H PRN. OTHERWISE, WE WILL FOLLOW UP WITH AM LABS AND CONTINUE TO MONITOR. Prescription drug monitoring program results: PDMP reviewed and no concerns identified H&P Reviewed: Yes Patient was examined?: Yes
[2020-03-26] MEDS: ROCEPHIN VIAL 1 GRAM 1 G in NS 100 ML IV + SPIKE MINIBAG* 100 ML IV SCH (09:53)
--- NOTE | 2020-03-26 10:24 | RAD ---
HISTORYBACK PAINSTUDYTHORACIC SPINECOMPARISONNoneFINDINGSNormal alignment of the thoracic spine is maintained. The disk space height is maintained without significant endplate sclerosis. No evidence for acute fracture can be identified.IMPRESSIONNegative examElectronically signed by: LETY CLEMENTS (Mar 26, 2020 10:22:51)
--- NOTE | 2020-03-26 10:26 | RAD ---
HISTORYBACK PAINSTUDYX-ray lumbar spine five viewsCOMPARISONNoneFINDINGSNo scoliosis or spondylolisthesis. No evidence of pars defect.No compression fracture. No disc space narrowing.Mild arthritic facet changes are seen at L4-5 and L5-S1.IMPRESSIONMild arthritic facet changes are seen at L4-5 and L5-S1.Electronically signed by: Nolberto Ruiz (Mar 26, 2020 10:25:42)
[2020-03-26] MEDS: NORCO 10/325 TAB PO PRN ×2 (10:49→21:18)
[2020-03-26] MEDS: AMBIEN PO PRN (21:18)
[2020-03-27] MEDS ORDERED: ROBITUSSIN DM ONE (03:17)
[2020-03-27] MEDS: NORCO 10/325 TAB PO PRN (03:21)
[2020-03-27] MEDS: ROBITUSSIN DM PO PRN ×2 (03:22→21:23)
[2020-03-27 06:21] LABS: BASOPHILS % (AUTO) 0.5 % (0.2-1.0); EOSINOPHILS # (AUTO) 0.2 x10^3/uL (0.0-0.2); EOSINOPHILS % (AUTO) 2.1 % (0.9-2.9); HEMOGLOBIN 10.6 g/dL (12.0-16.0); LYMPHOCYTES # (AUTO) 2.8 X10^3/uL (1.3-2.9); LYMPHOCYTES % (AUTO) 37.5 % (21.0-51.0); MEAN CORPUSCULAR HEMOGLOBIN 26.7 pg (27.0-34.0); MEAN CORPUSCULAR HGB CONC 32.2 g/dL (33.0-35.0); MEAN CORPUSCULAR VOLUME 82.7 fL (80.0-100.0); MEAN PLATELET VOLUME 7.3 fL (7.4-11.0); MONOCYTES # (AUTO) 0.5 x10^3/uL (0.3-0.8); MONOCYTES % (AUTO) 6.9 % (0.0-13.0); PLATELET COUNT 177 X10^3/uL (150.0-450.0); RED BLOOD COUNT 3.99 X10^6/uL (3.5-5.4); RED CELL DISTRIBUTION WIDTH 13.9 % (11.6-16.5); WHITE BLOOD COUNT 7.6 X10^3/uL (3.6-10.0)
[2020-03-27 06:34] LABS: ALANINE AMINOTRANSFERASE 22 Units/L (12-78); ALBUMIN 3.2 g/dL (3.4-5.0); ALKALINE PHOSPHATASE 65 Units/L (46-116); ASPARTATE AMINO TRANSFERASE 18 Units/L (15-37); BLOOD UREA NITROGEN 7 mg/dL (7-18); CALCIUM 8.4 mg/dL (8.5-10.1); CHLORIDE 104 mmol/L (98-107); CREATININE 0.83 mg/dL (0.55-1.02); SODIUM 140 mmol/L (136-145); TOTAL PROTEIN 5.9 g/dL (6.4-8.2); eGFR NON BLACK RACES > 60 (>60)
[2020-03-27] MEDS: PROTONIX INJ 40 MG VIAL IVP SCH ×2 (08:27→21:22)
[2020-03-27] MEDS: NS 1000 ML 1,000 ML IV SCH ×3 (08:27→21:22)
[2020-03-27] MEDS: PEPCID 20 MG IV PREMIX* 20 MG/50 ML BAG IV SCH ×2 (08:28→21:22)
[2020-03-27] MEDS: ROCEPHIN VIAL 1 GRAM 1 G in NS 100 ML IV + SPIKE MINIBAG* 100 ML IV SCH (08:28)
[2020-03-27] MEDS ORDERED: NORCO 10/325 TAB PO PRN (08:45)
[2020-03-27] MEDS ORDERED: ATARAX TAB 25 MG PO PRN (08:45)
[2020-03-27] MEDS ORDERED: FLEXERIL TAB 10 MG PO PRN (08:45)
[2020-03-27] MEDS ORDERED: PHENERGAN TAB 25 MG PO PRN (08:45)
[2020-03-27] MEDS ORDERED: XANAX PO PRN (08:45)
[2020-03-27] MEDS: ZOFRAN INJ 4 MG VIAL IVP PRN (10:04)
[2020-03-27] MEDS: CELEBREX PO SCH (10:39)
[2020-03-27] MEDS: COZAAR PO SCH (10:40)
[2020-03-27] MEDS: CELEXA PO SCH ×2 (10:40→10:49)
[2020-03-27] MEDS: LIPITOR TAB 10 MG PO SCH ×2 (10:41→21:22)
[2020-03-27] MEDS: NEURONTIN CAP 400 MG PO SCH ×4 (10:41→21:22)
[2020-03-27] MEDS: VITAMIN D3 125 mcg (5,000 UNITS) PO SCH (10:41)
[2020-03-27] MEDS ORDERED: BUTT CREAM (COMPOUND) TOP PRN (10:54)
[2020-03-27] MEDS ORDERED: LEXAPRO ONE (11:25)
[2020-03-27] MEDS: LEXAPRO PO SCH (11:34)
[2020-03-27 14:26] LABS: CRYPTOSPORIDIUM PARVUM ANTIGEN NEGATIVE (NEGATIVE); GIARDIA LAMBLIA ANTIGEN NEGATIVE (NEGATIVE)
[2020-03-27] MEDS ORDERED: ELAVIL PO SCH (21:00)
[2020-03-27] MEDS: AMBIEN PO PRN (21:23)
--- NOTE | 2020-03-27 23:19 | PCM.PROG ---
Progress Note - Progress Note for Day of Date of Exam: 03/27/20 - Subjective Subjective: WAS ADMITTED FOR TREATMENT OF A URINARY TRACT INFECTION, FAILED OUTPATIENT TREATMENT, ABDOMINAL PAIN, AND LOWER BACK PAIN. TODAY, SHE IS ALERT AND ORIENTED, LYING IN BED ON MORNING ROUNDS. SHE CONTINUES WITH COMPLAINTS OF LOWER ABDOMINAL PAIN AND LOWER BACK PAIN TODAY. SHE ALSO R EPORTS DIARRHEA, NAUSEA, AND BLADDER SPASMS. ON EXAMINATION, HEART IS REGULAR IN RATE AND RHYTHM. BILATERAL LUNG ARE CLEAR TO AUSCULTATION. ABDOMEN IS ROUND, SOFT, AND NOTED WITH SUPRAPUBIC TENDERNESS. HER VITALS THIS MORNING ARE: 98.0-87-20-97%-128/64. LABS WERE OBTAINED. ABNORMAL LAB VALUES INCLUDE THE FOLLOWING: HGB 10.6, HCT 33.0, CALCIUM 8.4, TOTAL PROTEIN 5.9, ALBUMIN 3.2. URINE CULTURE IS PENDING. AN L-SPINE XRAY WAS OBTAINED YESTERDAY AND REVEALED: Mild arthritic facet changes are seen at L4-5 and L5-S1. A T-SPINE XRAY WAS ALSO OBTAINED AND REVEALED: Normal alignment of the thoracic spine is maintained. The disk space height is maintained without significant endplate sclerosis. No evidence for acute fracture can be identified. SHE IS CURRENTLY RECEIVING NORMAL SALINE AT 80 ML/HR, ROCEPHIN 1G IV DAILY, PEPCID 20MG IV Q12H, PROTONIX 40MG IV BID, ZOFRAN 4MG IV Q4H PRN, AND TORADOL 30MG IV Q6H PRN. TODAY, WE WILL OBTAIN STOOL STUDIES. OTHERWISE, WE PLAN TO FOLLOW UP WITH AM LABS AND CONTINUE TO MONITOR. - Past Medical Family Social History Past Med/Fam/Surg Hx: No changes since H&P Allergies: Allergies fentanyl Allergy (Verified 03/25/20 17:45) - Review of Systems ROS: No change since H&P - Vital Signs and I&O's Vital Signs: Temperature 98.0 F Pulse Rate [Left Brachial] 79 Respiratory Rate 20 Blood Pressure [Left Arm] 137/64 Blood Pressure [Right Arm] 114/62 O2 Sat by Pulse Oximetry 94 Intake and Output: Intake & Output 03/25/20 03/26/20 03/27/20 03/28/20 11:59 11:59 11:59 11:59 Intake Total 2448 / 2448 4484 / 4484 942 / 942 Balance 2448 / 2448 4484 / 4484 942 / 942 - Physical Exam Oriented: Normal Eyes: Normal Ear: Normal Nose: Normal Throat: Normal Respiratory: Normal Cardiovascular: Normal : Normal Auscultation: Bowel Sounds: Normal Palpation: Normal Tenderness: Suprapubic, Mild Skin: Normal Musculoskeletal: Back:Thoracic, Back:Lumbar, Tender Psychiatric: Normal Mood Description: Calm Affect: Normal Speech Pattern: Clear, Appropriate - Laboratory and Diagnostics Result Diagrams: 03/27/20 05:43 03/27/20 05:43 Labs: 03/27/20 13:13 Stool - Final 03/25/20 18:10 Urine,Clean Catch Urine Culture - Final Laboratory WBC 7.6 X10^3/uL (3.6-10.0) 03/27/20 05:43 RBC 3.99 X10^6/uL (3.5-5.4) 03/27/20 05:43 Hgb 10.6 g/dL (12.0-16.0) L 03/27/20 05:43 Hct 33.0 % (36.0-47.0) L 03/27/20 05:43 MCV 82.7 fL (80.0-100.0) 03/27/20 05:43 MCH 26.7 pg (27.0-34.0) L 03/27/20 05:43 MCHC 32.2 g/dL (33.0-35.0) L 03/27/20 05:43 RDW 13.9 % (11.6-16.5) 03/27/20 05:43 Plt Count 177 X10^3/uL (150.0-450.0) 03/27/20 05:43 MPV 7.3 fL (7.4-11.0) L 03/27/20 05:43 Neut % (Auto) 53.0 % (42.0-75.0) 03/27/20 05:43 Lymph % (Auto) 37.5 % (21.0-51.0) 03/27/20 05:43 [place] % (Auto) 6.9 % (0.0-13.0) 03/27/20 05:43 Eos % (Auto) 2.1 % (0.9-2.9) 03/27/20 05:43 Baso % (Auto) 0.5 % (0.2-1.0) 03/27/20 05:43 Neut # (Auto) 4.0 x10^3/uL (2.2-4.8) 03/27/20 05:43 Lymph # (Auto) 2.8 X10^3/uL (1.3-2.9) 03/27/20 05:43 [place] # (Auto) 0.5 x10^3/uL (0.3-0.8) 03/27/20 05:43 Eos # (Auto) 0.2 x10^3/uL (0.0-0.2) 03/27/20 05:43 Baso # (Auto) 0.0 X10^3/uL (0.0-0.1) 03/27/20 05:43 Absolute Nucleated RBC 0.0 /100WBC 03/27/20 05:43 Sodium 140 mmol/L (136-145) 03/27/20 05:43 Corrected Sodium TNP 03/27/20 05:43 Potassium 4.1 mmol/L (3.5-5.1) 03/27/20 05:43 Chloride 104 mmol/L (98-107) 03/27/20 05:43 Carbon Dioxide 31.0 mmol/L (21-32) 03/27/20 05:43 BUN 7 mg/dL (7-18) 03/27/20 05:43 Creatinine 0.83 mg/dL (0.55-1.02) 03/27/20 05:43 Est GFR (MDRD) Af Amer > 60 (>60) 03/27/20 05:43 Est GFR (MDRD) Non-Af > 60 (>60) 03/27/20 05:43 Glucose 87 mg/dL (65-99) 03/27/20 05:43 Hemoglobin A1c 5.6 % 03/27/20 05:43 Calcium 8.4 mg/dL (8.5-10.1) L 03/27/20 05:43 Corrected Calcium 9.0 mg/dL (8.5-10.1) 03/27/20 05:43 Total Bilirubin 0.30 mg/dL (0.2-1.0) 03/27/20 05:43 AST 18 Units/L (15-37) 03/27/20 05:43 ALT 22 Units/L (12-78) 03/27/20 05:43 Alkaline Phosphatase 65 Units/L (46-116) 03/27/20 05:43 Total Protein 5.9 g/dL (6.4-8.2) L 03/27/20 05:43 Albumin 3.2 g/dL (3.4-5.0) L 03/27/20 05:43 Globulin 2.7 g/dL (2.5-4.5) 03/27/20 05:43 Albumin/Globulin Ratio 1.2 Ratio (1.1-2.1) 03/27/20 05:43 Specimen Type Clean catch urine 03/25/20 18:10 Urine Color Yellow (YELLOW) 03/25/20 18:10 Urine Appearance Clear (CLEAR) 03/25/20 18:10 Urine pH 5.0 (5.0 - 8.0) 03/25/20 18:10 Ur Specific [place] 1.015 (1.000-1.030) 03/25/20 18:10 Urine Protein Negative (NEGATIVE) 03/25/20 18:10 Urine Glucose (UA) Negative (NEGATIVE) 03/25/20 18:10 Urine Ketones Negative (NEGATIVE) 03/25/20 18:10 Urine Occult Blood 1+ (NEGATIVE) 03/25/20 18:10 Urine Nitrite Negative (NEGATIVE) 03/25/20 18:10 Urine Bilirubin Negative (NEGATIVE) 03/25/20 18:10 Urine Urobilinogen Normal (NORMAL) 03/25/20 18:10 Ur Leukocyte Esterase 2+ (NEGATIVE) 03/25/20 18:10 Urine RBC 0-2 /HPF (0-3) 03/25/20 18:10 Urine WBC 3-5 /HPF (0-5) 03/25/20 18:10 Ur Squamous Epith Cells Few /HPF (NEGATIVE) 03/25/20 18:10 Urine Bacteria Trace /HPF (NEGATIVE) 03/25/20 18:10 Ur Culture Indicated? Yes/culture set up 03/25/20 18:10 Stool Description 5 g mucoid brn stool 03/27/20 13:13 Stool Description Fob tube 03/27/20 13:13 Stl Occult Blood (IFOB) Negative (NEGATIVE) 03/27/20 13:13 Stool for White Cells Positive (NEGATIVE) A 03/27/20 13:13 Stl C. diff Tox B Gene Negative (NEGATIVE) 03/27/20 13:13 Stl C. diff [id number] Negative (NEGATIVE) 03/27/20 13:13 Cryptosporid parvum Ag Negative (NEGATIVE) 03/27/20 13:13 Giardia lamblia Ag Negative (NEGATIVE) 03/27/20 13:13 SARS CoV-2 RNA Rapid GOPI Negative (NEGATIVE) 03/25/20 16:21 - Plan (1) Urinary tract infection Status: Acute Qualifiers: Urinary tract infection type: acute cystitis Hematuria presence: without hematuria Qualified Code(s): N30.00 - Acute cystitis without hematuria Plan: NORMAL SALINE AT 80 ML/HR, ROCEPHIN 1G IV DAILY, PEPCID 20MG IV Q12H, PROTONIX 40MG IV BID, ZOFRAN 4MG IV Q4H PRN, AND TORADOL 30MG IV Q6H PRN. (2) Diarrhea Status: Acute Qualifiers: Diarrhea type: unspecified type Qualified Code(s): R19.7 - Diarrhea, unspecified (3) Abdominal pain Status: Acute Qualifiers: Abdominal location: lower abdomen, unspecified Qualified Code(s): R10.30 - Lower abdominal pain, unspecified (4) Nausea & vomiting Status: Acute Qualifiers: Vomiting type: unspecified Vomiting Intractability: unspecified Qualified Code(s): R11.2 - Nausea with vomiting, unspecified
[2020-03-28 06:06] LABS: BASOPHILS # (AUTO) 0.1 X10^3/uL (0.0-0.1); BASOPHILS % (AUTO) 0.8 % (0.2-1.0); EOSINOPHILS # (AUTO) 0.2 x10^3/uL (0.0-0.2); EOSINOPHILS % (AUTO) 2.3 % (0.9-2.9); HEMOGLOBIN 11.2 g/dL (12.0-16.0); LYMPHOCYTES # (AUTO) 2.4 X10^3/uL (1.3-2.9); LYMPHOCYTES % (AUTO) 32.8 % (21.0-51.0); MEAN CORPUSCULAR HEMOGLOBIN 26.6 pg (27.0-34.0); MEAN PLATELET VOLUME 7.3 fL (7.4-11.0); MONOCYTES # (AUTO) 0.6 x10^3/uL (0.3-0.8); MONOCYTES % (AUTO) 8.2 % (0.0-13.0); NEUTROPHILS # (AUTO) 4.2 x10^3/uL (2.2-4.8); NEUTROPHILS % (AUTO) 55.9 % (42.0-75.0); PLATELET COUNT 196 X10^3/uL (150.0-450.0); RED BLOOD COUNT 4.22 X10^6/uL (3.5-5.4); RED CELL DISTRIBUTION WIDTH 14.4 % (11.6-16.5); WHITE BLOOD COUNT 7.4 X10^3/uL (3.6-10.0)
[2020-03-28 06:21] LABS: ALANINE AMINOTRANSFERASE 16 Units/L (12-78); ALBUMIN 3.2 g/dL (3.4-5.0); ALKALINE PHOSPHATASE 75 Units/L (46-116); ASPARTATE AMINO TRANSFERASE 15 Units/L (15-37); BLOOD UREA NITROGEN 6 mg/dL (7-18); CALCIUM 8.8 mg/dL (8.5-10.1); CARBON DIOXIDE 29.9 mmol/L (21-32); CHLORIDE 104 mmol/L (98-107); COR CA(FOR HYPOALB) 9.4 mg/dL (8.5-10.1); COR NA(FOR HYPERGLY) 140 mmol/L (136-145); CREATININE 0.82 mg/dL (0.55-1.02); SODIUM 140 mmol/L (136-145); eGFR NON BLACK RACES > 60 (>60)
[2020-03-28 08:32] VITALS: BP 139/73
[2020-03-28] MEDS ORDERED: LEXAPRO ONE (09:48)
[2020-03-28] MEDS: CELEBREX PO SCH (10:03)
[2020-03-28] MEDS: COZAAR PO SCH (10:04)
[2020-03-28] MEDS: LEXAPRO PO SCH (10:05)
[2020-03-28] MEDS: PEPCID 20 MG IV PREMIX* 20 MG/50 ML BAG IV SCH ×2 (10:06→11:20)
[2020-03-28] MEDS: NEURONTIN CAP 400 MG PO SCH (10:06)
[2020-03-28] MEDS: ROCEPHIN VIAL 1 GRAM 1 G in NS 100 ML IV + SPIKE MINIBAG* 100 ML IV SCH (10:07)
[2020-03-28] MEDS: VITAMIN D3 125 mcg (5,000 UNITS) PO SCH (10:07)
[2020-03-28] MEDS: PROTONIX INJ 40 MG VIAL IVP SCH (10:07)
[2020-03-28] MEDS: NS 1000 ML 1,000 ML IV SCH (11:20)
== END 2020-03-28 13:00 | disposition home or self-care (01) ==
LOC: MED/SURG
PROVIDERS: ADMIT Internal Medicine; ATTEND Internal Medicine